=== PATIENT | male | born 1960 | race Caucasian/White ===

== ENCOUNTER 2019-07-03 09:27 | Day surgery (SDC) | payer BC ==
[2019-06-27 13:24] LABS: URINE BILIRUBIN NEGATIVE (Negative); URINE BLOOD NEGATIVE (Negative); URINE CLARITY CLEAR; URINE COLOR YELLOW; URINE GLUCOSE-RANDOM* NEGATIVE (Negative); URINE KETONES NEGATIVE (Negative); URINE LEUKOCYTES-REFLEX NEGATIVE (Negative); URINE NITRITE-REFLEX NEGATIVE (Negative); URINE PROTEIN (DIPSTICK) NEGATIVE (Negative); URINE SPECIFIC GRAVITY 1.015 (1.005-1.035); URINE UROBILINOGEN 0.2 E.U./dl (0.2-1.0)
[2019-06-27 13:33] LABS: HEMATOCRIT 46.2 % (42.0-52.0); HEMOGLOBIN 15.9 gm/dL (14.0-18.0); MCH 31.3 pg (26.0-34.0); MCHC 34.4 g/dL (28.0-37.0); MCV 91.1 fL (80.0-100.0); RBC 5.07 mil/uL (4.50-6.00); RDW 12.1 % (10.5-14.5); WBC 5.7 thou/uL (4.0-11.0)
[2019-06-27 13:37] LABS: PROTIME 10.2 Seconds (9.3-11.4)
[2019-06-27 13:38] LABS: ALBUMIN 4.1 g/dL (3.4-5.0); CALCIUM 9.1 mg/dL (8.5-10.1); CREATININE 1.1 mg/dL (0.7-1.3); POTASSIUM 4.1 mmol/L (3.5-5.1)
[2019-06-28 00:06] LABS: GLYCOHEMOGLOBIN (HGB A1C) 6.4 % (4.8-5.6)
[~2019-07-03] VITALS: Ht 165.1 cm; Wt 98.9 kg
[~2019-07-03 09:27] MED LIST: ASA81BEC PO; IBUPROFEN200 MG PO; LISINOPRIL10 MG PO; METFORMIN HCL1000 MG PO
[2019-07-03 10:16] VITALS: BP 146/91
--- NOTE | 2019-07-03 19:54 | NUR ---
PT CARE ASSUMED FROM PACU. A&Ox4. VITALS STABLE. POLAR PACK IN PLACE. SCD'S AND ROBERTO HOSES IN PLACE. ADMISSION COMPLEETE. AT BEDSIDE. PT HAS SLEEP APNEA AND HAS CPAP MACHINE FROM HOME AT BEDSIDE. BRIANNA DRESSING INTACT. IV PATENT WITH NO REDNESS OR EDEMA. SALINE LOCKED. PT HAS NOT BEEN TO THE BATHROOM YET BUT HAS THE URGE TO GO AND WANTS TO GET UP TO THE BATHROOM. ADMISSION COMPLEETE. FALL RISK PROTOCOLL IN PLACE. CALL LIGHT IN REACH. WILL CONTINUE TO MONITOR.
[2019-07-03 20:00] VITALS: BP 137/65
[2019-07-04 03:30] VITALS: BP 98/47
[2019-07-04 04:07] LABS: CALCIUM 8.6 mg/dL (8.5-10.1); CREATININE 1.5 mg/dL (0.7-1.3); POTASSIUM 4.4 mmol/L (3.5-5.1)
--- NOTE | 2019-07-04 04:32 | NUR ---
ASSESSED AT START OF SHIFT PT A&OX4 WITH C/O PAIN, MEDS GIVEN SEE EMAR. PT DIABETIC BUT NIDDM. BLOOD SUGAR 319 CALLED ARCHITECTURAL MODEL MAKER RECEIVING LEAD FOR INSULIN COVERAGE. RECHECKED BS AND BEDTIME INSULIN ADMINISTERED PER ORDERS. BRIANNA DRESSING, SCD'S AND POLAR PACK IN PLACE. PT UP WITH ASSISTX1 WITH WALKER AND GB TO THE BATHROOM. PT DID VERY WELL WITH AMBULATION. AT BEDSIDE FOR THE NIGHT. PT DRINKIN ADEQUATE PO FLUIDS. IV SL AND ABX GIVEN. FALL PREC IN PLACE AND CALL LIGHT IN REACH WILL CONT WITH POC TILL EOS
[2019-07-04 04:51] LABS: HEMATOCRIT 41.9 % (42.0-52.0); HEMOGLOBIN 14.3 gm/dL (14.0-18.0); MCH 31.6 pg (26.0-34.0); MCHC 34.1 g/dL (28.0-37.0); MCV 92.7 fL (80.0-100.0); RBC 4.52 mil/uL (4.50-6.00); RDW 12.3 % (10.5-14.5); WBC 15.4 thou/uL (4.0-11.0)
[2019-07-04 05:00] VITALS: BP 11/64
--- NOTE | 2019-07-04 07:15 | O ---
[address] [address] OPERATIVE REPORT Name: ARA MANRIQUEZ Room #: 439-P [facility]#: [id number] Admission: 07/03/19 Attend Phys: Marcial Montesinos MD Discharge: Date of : 62 Report #: [id number] THIS REPORT FOR: cc: Nesha Lay DNP, Leopoldine DNP McCabe, Michael P. MD ~ CC: Nesha Montesinos DATE OF SERVICE: 07/03/2019 SERVICE: Orthopedics. FACILITY: [facility]. SURGEON: Marcial Montesinos MD MANAGER OF LOSS PREVENTION OPERATIONS: Felicita Wolfe NP. INDICATION FOR MANAGER OF LOSS PREVENTION OPERATIONS: Extremity positioning, retraction, assistance with reconstruction. PREOPERATIVE DIAGNOSIS: Right knee osteoarthritis, severe. POSTOPERATIVE DIAGNOSIS: Right knee osteoarthritis, severe. PROCEDURE: 1. Right total knee arthroplasty. 2. Computer navigated robotic-assisted arthroplasty. COMPLICATIONS: None. DRAINS: None. SPECIMENS: None. ANESTHESIA: General with regional. FINDINGS: 1. Calloway and Nephew Oxinium Journey II size 6 femur with size 7 tibia, a 10 mm polyethylene insert and 35 mm patellar inset button. 2. Well balanced knee at the conclusion of the arthroplasty. HISTORY: The patient is a gentleman with history of severe right knee OA that has been progressing persistent and affecting his daily activities as well as his work. He had failed all conservative treatment including rest, activity [address] [address] OPERATIVE REPORT Name: ARA MANRIQUEZ Room #: 439-P [facility]#: [id number] Admission: 07/03/19 Attend Phys: Marcial Montesinos MD Discharge: Date of : 62 Report #: [id number] modifications, physical therapy, oral medicines, injections and elected to undergo definitive surgical treatment. Risks, benefits, alternatives, and indication of surgery discussed with him in detail. Risks include but not limited to pain, bleeding, infection, injury to nerves or blood vessels, need for further surgery, including stiffness as well as revision and complications related to anesthesia such as stroke, heart attack, pulmonary complications, thromboembolic disease and . Despite these risks, he wished to proceed. PROCEDURE IN DETAIL: After right lower extremity was correctly identified in preoperative holding as operative extremity, the patient underwent placement of single shot regional nerve block. He was then taken to the operating room where general anesthesia was induced without complications. He was padded appropriately. Prophylactic antibiotics were administered at appropriate time. Tourniquet was applied to right lower extremity. Right leg was then prepped and draped in standard sterile fashion. Time-out procedure was performed. Esmarch was used. Tourniquet inflated to 300 mmHg. The anterior approach was made to the knee and then a medial parapatellar arthrotomy was performed. Dissection was taken down. There was obvious osteoarthritis of the right knee and advanced chondral wear. The menisci were excised. The cruciates were excised. The osteophytes were excised and then the Calloway and Nephew guide half pins were placed in the femur and tibia in the checkpoints and then sizing and orientation was obtained with the Navio robotic-assisted program. This indicated approximately 13 degree flexion contracture with 7 degrees of varus and we planned for full extension with 1-2 degrees of postoperative varus in order to have him the best balanced knee possible. There were large osteophytes that were removed posteriorly. The medial osteophytes were removed as well on the tibia. The femur was mapped and then prepared with the 5-in-1 cutting block after the distal cut had been made with the Navio. The Navio was used to set the resection height on the tibia and then the tibial bone cut was made with care taken to protect the posterior soft tissues and structures. Trials were placed and then balancing was assessed, both manually and then with the computer navigation and it was well balanced and felt best with a 10 mm poly insert. The trials were removed as the posterior osteophytes were removed and then the posterior capsule was injected with the periarticular injection cocktail. The knee was then copiously irrigated and then the final implants were cemented into place after the patella had been prepared for 35 mm patellar inset button. The 10 mm trial was placed and the knee was held in extension while the cement cured. The excess cement was removed. Tourniquet was let down. Hemostasis was achieved. The knee was again irrigated and then it was assessed with the trial poly. I was happy with ___ throughout all range of motion and he did achieve full extension. He had a straight leg on visual inspection. The final poly was snapped into place after the knee was once more irrigated and then the arthrotomy was closed with 0 Vicryl suture in [id number] fashion over 1 gram of vancomycin powder. There was no significant bleeding occurring so no drain was required. Skin was [address] [address] OPERATIVE REPORT Name: ARA MANRIQUEZ Room #: 439-P [facility] M.R.#: [id number] Admission: 07/03/19 Attend Phys: Marcial Montesinos MD Discharge: Date of : 62 Report #: [id number] closed with 2-0 Vicryl followed by running subcuticular 3-0 Monocryl and Dermabond. A BRIANNA silver impregnated dressing was applied followed by compression stocking, PolarCare on the knee. The patient was awakened from anesthesia and taken to recovery room in stable condition. No complications. All counts were correct. <ELECTRONICALLY SIGNED> By: Marcial Montesinos MD 07/04/19 0715 1801 1908 Marcial Montesinos MD /nt
[2019-07-04 08:01] VITALS: BP 119/78
[2019-07-04 08:18] VITALS: BP 119/78
[2019-07-04 09:00] VITALS: BP 119/78
--- NOTE | 2019-07-04 10:10 | NUR ---
PT CARE ASSUMED AT 0700. A&Ox4. IN ROOM. PT POST OP DAY 1 WITH A R. TOTAL KNEE. PT HAS HOME CPAP IN THE ROOM. BRIANNA DRESSING INTACT. POLAR PACK AND SCD'D IN PLACE. [facility] COVERAGE NEEDED DURING THE STAY. PT HAS CLEARED PT TO GO HOME. PT. HAS OWN WALKER IN THE ROOM. IV IS PATENT WITH NO REDNESS OR EDEMA. SALINE LOCKED. PAIN MANAGED WELL WITH MEDICATION. PT IS UP TO THE BATHROOM WITH GAITBELT AND A WALKER. FALL PROTOCOLL IN PLACE. CALL LIGHT IN REACH. WILL CONTINUE TO MONITOR. EDUCATION GIVEN ON POLARPACK AND BRIANNA DRESSING.
--- NOTE | 2019-07-04 13:50 | NUR ---
PT ADMITTED RELATED TO RT TOTAL KNEE REPLACEMENT. CM REVIEWED CHART AND SPOKE WITH CARE TEAM. CM MET WITH PT AT BEDSIDE THIS DAY. PT IS A&O X4. CM ROLE INTRODUCED. PT INDICATED HE LIVES IN A HOUSE WITH HIS SPOUSE WITH NO STEPS. PT INDICATED HE HAS A FWW FOR HOME USE [place]. PT INDICATED HE IS TO DO OP PT AT [facility] [place]. PT TO DC HOME THIS DAY. NO OTHER CM INTERVENTION INDICATED. CASE CLOSED.
== END 2019-07-04 11:12 | disposition home or self-care (01) ==
LOC: OR 09:27 → TBA 09:29 → OR 11:52 → 4S 16:45 → ENTRNSPT 07-04 10:35 → OR 07-04 11:12
PROVIDERS: Orthopaedic Surgery Sports Medicine
DX: M17.11 Unilateral primary osteoarthritis, right knee (principal); M25.561 Pain in right knee; I10 Essential (primary) hypertension; F32.9 Major depressive disorder, single episode, unspecified; G47.30 Sleep apnea, unspecified; E11.9 Type 2 diabetes mellitus without complications; Z98.890 Other specified postprocedural states; Z79.899 Other long term (current) drug therapy
CPT/HCPCS: 10102; 50010; 50101; 50415; 50954; 51130; 51225; 51320; 52001; 52282; 53078; 54118; 55372; 56527; 56528; 57095; 57103; 57110; 57127; 57180; 62110; 62900; 64043; 65060; 70005

== ENCOUNTER → 2020-04-02 | Outpatient (CLI) | payer BC ==
[~2020-04-02] MED LIST changes: +ALPRAZOLAM 0.0.25 M1 PO; +MULTIVITAMIN1 EACH PO; +PRAZOSIN HCL2 MG PO; +SERTRALINE HCL100 MG PO; +TURMERIC500 M2 PO; +VITAMIN C500 M2 PO; +ZINC SULFATE220 MG PO
== END ==
LOC: LAB 07:18
PROVIDERS: ATTEND Orthopaedic Surgery Sports Medicine
DX: Z01.812 Encounter for preprocedural laboratory examination (principal); Z20.828 Contact with and (suspected) exposure to other viral communicable diseases

== ENCOUNTER 2020-04-08 09:56 | Inpatient (IN) | payer BC ==
[2020-04-02 13:14] LABS: URINE BILIRUBIN NEGATIVE (Negative); URINE BLOOD NEGATIVE (Negative); URINE CLARITY CLEAR; URINE COLOR YELLOW; URINE GLUCOSE-RANDOM* NEGATIVE (Negative); URINE KETONES NEGATIVE (Negative); URINE LEUKOCYTES-REFLEX NEGATIVE (Negative); URINE NITRITE-REFLEX NEGATIVE (Negative); URINE PROTEIN (DIPSTICK) NEGATIVE (Negative); URINE SPECIFIC GRAVITY 1.025 (1.005-1.035); URINE UROBILINOGEN 0.2 E.U./dl (0.2-1.0)
[2020-04-02 13:16] LABS: HEMATOCRIT 45.3 % (42.0-52.0); HEMOGLOBIN 15.6 gm/dL (14.0-18.0); MCH 32.2 pg (26.0-34.0); MCHC 34.4 g/dL (28.0-37.0); MCV 93.5 fL (80.0-100.0); RBC 4.84 mil/uL (4.50-6.00); RDW 12.6 % (10.5-14.5); WBC 7.1 thou/uL (4.0-11.0)
[2020-04-02 13:28] LABS: ALBUMIN 4.1 g/dL (3.4-5.0); CALCIUM 8.9 mg/dL (8.5-10.1); CREATININE 1.3 mg/dL (0.7-1.3); POTASSIUM 4.5 mmol/L (3.5-5.1)
--- NOTE | 2020-04-02 13:34 | EKG ---
[facility] [place] [address] ELECTROCARDIOGRAM REPORT Name: ARA MANRIQUZE Room #: PRE [facility]..#: [id number] Admission: Attend Phys: Marcial Montesinos MD Discharge: Date of : 62 Report #: [id number] THIS REPORT FOR: cc: Nesha Lay DNP, Leopoldine DNP Santiago, Patrick MD [facility] ~ THIS REPORT FOR: //name// [facility] Test Date: 2020-04-02 Test Time: 13:06:33 Pat Name: ARA MANRIQUEZ Department: Room: Gender: M Carpenter: JESUSITA : 1960 Requested By: Marcial Montesinos Order Number: [id number] MD: Umang Coulter Measurements Intervals [place] Rate: 96 P: 47 IN: 153 QRS: 25 QRSD: 85 T: 8 QT: 350 QTc: 443 Interpretive Statements Sinus rhythm Low voltage, extremity leads No previous ECG available for comparison Electronically Signed On 04-02-2020 13:34:31 MANAGER TELECOM by Umang Coulter [email or web address] <ELECTRONICALLY SIGNED> By: Umang Coulter MD, FACC 04/02/20 1334 1306 130 Umang Coulter MD, FACC /EPI
[2020-04-02 13:39] LABS: PROTIME 10.3 Seconds (9.3-11.4)
[2020-04-03 07:09] LABS: GLYCOHEMOGLOBIN (HGB A1C) 6.5 % (4.8-5.6)
[~2020-04-08] VITALS: Ht 165.1 cm; Wt 116.0 kg
[2020-04-17 13:52] VITALS: BP 155/87
[2020-04-17 18:01] VITALS: BP 162/107
[2020-04-17 18:59] VITALS: BP 162/107
--- NOTE | 2020-04-17 19:01 | NUR ---
PATIENT ARRIVED ON UNIT AT 17:50 SPOUSE AT BEDSIDE. V.S. 98.4 18 90 162/107 O2 SAT =95 % 2L/NC. HEIGHT = 5"5 WEIGHT = 255.7 PT ALERT XS 4. PT HAS POLAR PACK AND PICCO DRESSING INTACT. SCD'S AND THIGH HIGH ROBERTO HOSE IN PLACE. FLUIDS INFUSING ORDERED. CALLED PROGRAM PROJECT MANAGER FOR HTN ORDER RECIEVED FOR HYDRALIZINE 10 MG PO Q 4 HOURS WITH PARAMETERS.
[2020-04-17 19:45] VITALS: BP 153/78
[2020-04-17 22:40] VITALS: BP 160/94
[2020-04-18 03:27] VITALS: BP 127/72
--- NOTE | 2020-04-18 03:33 | NUR ---
PT IS ALERT AND ORIENTED, AFEBRILE. LEFT KNEE WITH BRIANNA DRSG INTACT WELL SCDS, TEDS AND POLAR BETTY. BP MUCH IMPROVED. HS BLOOD SUGAR OF 273, PT ASKED FOR SOME TURKEY SANDWICH BOX.USES URINAL,NO ISSUES. PT STILL REPORTS SOME NUMBNESS TO LLE,GOOD CAP REFILL NOTED. GOOD FLUID INTAKE. SATTING WELL ABOVE 93% ON ROOM AIR. USING CPAP AT NOC.APPEARS TO BE RESTING WELL. PAIN MANAGED BY PERCOCET. RATES PAIN AT A 6/10.PROGRESSING TOWARDS CARE GOALS.
[2020-04-18 06:00] LABS: HEMATOCRIT 41.2 % (42.0-52.0); HEMOGLOBIN 13.9 gm/dL (14.0-18.0); MCH 31.7 pg (26.0-34.0); MCHC 33.7 g/dL (28.0-37.0); MCV 94.1 fL (80.0-100.0); RBC 4.37 mil/uL (4.50-6.00); RDW 12.3 % (10.5-14.5); WBC 12.4 thou/uL (4.0-11.0)
[2020-04-18 06:20] LABS: CALCIUM 8.3 mg/dL (8.5-10.1); CREATININE 1.5 mg/dL (0.7-1.3); POTASSIUM 4.3 mmol/L (3.5-5.1)
[2020-04-18 07:15] VITALS: BP 120/77
[2020-04-18] MEDS ORDERED: ASA81BEC PO (08:56)
--- NOTE | 2020-04-18 09:52 | NUR ---
PT CARE ASSUMED AT 0700. A&Ox4. BRIANNA DRESSING DRY AND INTACT. POLARPACK/TEDS/SCD'S IN PLACE. PAIN CONTROLLED WELL WITH PAIN MEDICATION ON BOARD. CPAP AT NIGHT. ACHS WITH LOW SLIDING SCALE COVERAGE. NORMALY DIET CONTROLLED AT HOME. IV PATENT WITH NO REDNESS OR EDEMA, SALINE LOCKED. PT/RT ON BOARD. FALL PROTOCOL IN PLACE. CALL LIGHT IN REACH. WILL CONTINUE TO MONITOR.
--- NOTE | 2020-04-18 11:41 | NUR ---
ASSESSMENT: CM REVIEWED CHART AND SPOKE WITH PT. PT IS ALERT AND ORIENTED X4. PT IS S/P LEFT KNEE REPLACEMENT. PT REPORTS LIVING IN A HOUSE WITH HIS . PT REPORTS NO STEPS TO ENTER OR ONCE INSIDE. PT REPORTS HAVING A WALKER FOR AMBULATION. PT REPORTS HE IS GOING TO GO TO OUTPATIENT THERAPY AT [facility]. CM DISCUSSED ROLE. PT DOES NOT ANTICIPATE HAVING ANY NEEDS FROM CM. PT WILL DISCHARE HOME.
[2020-04-18 12:22] VITALS: BP 120/77
--- NOTE | 2020-04-19 10:43 | O ---
[address] [address] OPERATIVE REPORT Name: ARA MANRIQUEZ Room #: 439-P [facility] M.R.#: [id number] Admission: 04/17/20 Attend Phys: Marcial Montesinos MD Discharge: 04/18/20 Date of : 62 Report #: [id number] THIS REPORT FOR: cc: Nesha Lay DNP, Leopoldine DNP McCabe, Michael P. MD ~ DATE OF SERVICE: 04/17/2020 SERVICE: Orthopedics. FACILITY: [place]. SURGEON: Dr. Marcial Montesinos CLEANING PORTER: Feliicta Wolfe NP INDICATION FOR CLEANING PORTER: Exposure and closure, retraction trial and final implant placement. COMPLICATIONS: None. DRAINS: None. SPECIMENS: None. ANESTHESIA: General with regional. ESTIMATED BLOOD LOSS: 50 mL. FINDINGS: 1. Calloway and Nephew Journey II Oxinium size 7 femoral component, size 6 tibial component, 35 mm patellar button and 11 mm poly. 2. Well-balanced knee at the conclusion of the procedure. PREOPERATIVE DIAGNOSIS: Severe left knee osteoarthritis. POSTOPERATIVE DIAGNOSIS: Severe left knee osteoarthritis. PROCEDURES: 1. Left total knee arthroplasty. 2. Robotic-assisted arthroplasty. HISTORY: The patient is a 59-year-old gentleman with history of bilateral knee osteoarthritis. He had a right total knee replacement earlier in 2019 and had a good clinical outcome with improvement of his pain and function, but he continued to have lifestyle limiting knee pain and problems related to his [address] [place] [address] OPERATIVE REPORT Name: ARA MANRIQUEZ Room #: 439-P [facility] ..#: [id number] Admission: 04/17/20 Attend Phys: Marcial Montesinos MD Discharge: 04/18/20 Date of : 62 Report #: [id number] osteoarthritis. His x-ray showed [id number] changes with sclerosis and osteophytes. He was indicated for surgical treatment after failing extensive conservative measures including rest, activity modifications, physical therapy, oral medicines and injections and bracing. Risks, benefits, alternatives, and indication of surgery discussed with him in detail. Risks include but are not limited to pain, bleeding, infection, injury to nerves or blood vessels, persistent pain despite surgical intervention, failure of any repairs, failure of the arthroplasty, need for further surgery as well as complications related to anesthesia. Despite the risks, he wished to proceed. PROCEDURE IN DETAIL: After left lower extremity was correctly identified in the preoperative holding area as the operative extremity, the patient underwent regional nerve block. He was then taken to the operating room where general anesthesia was induced without complications. He was padded appropriately. Prophylactic antibiotics were administered at appropriate time. Left leg was then prepped and draped in standard sterile fashion after tourniquet was applied to the left leg. Time-out procedure was performed prior to tourniquet. The antibiotics were confirmed to be appropriately administered. Esmarch was utilized. Tourniquet inflated to 300 mmHg. Standard anterior approach was made with medial parapatellar arthrotomy. Dissection was performed exposing the knee. The osteophytes were removed. The cruciates were removed. The anterior horns of the medial and lateral menisci were resected as was the retropatellar fat pad. The patella was everted and then we proceeded to place the tracker pins and then the femoral and tibial half pins for the Calloway and NephLang-8 Navio system. The templating software was then utilized to assess the kinematics and the anatomy and then the bur was used in a standard fashion and then we transitioned to the 4-in-1 cutting block for the femur, sizing it to a 7 femur with a goal of correcting his flexion varus deformity. We proceeded with preparation of the tibia, removed all the posterior osteophytes and then used a lamina maxillofacial prosthodontist and injected with the periarticular injection cocktail into the posterior capsule. We placed the sizing blocks. I was happy with the balancing initially with one knee, posterior osteophytes and the residual PCL was resected. It really fit a little bit better in terms of the tensioning that seemed to be best for him and that was based on examination with the trials as well as assessment with the Navio with the trials in place, giving live balancing feedback after the final preparation of the bone was completed, including tibial punching and trialing and the patella was prepared. The knee was thoroughly irrigated and then the final components were cemented into position. The 11 trial was utilized and the knee was held in extension while the cement cured. Excess cement was removed. Hemostasis was achieved after the tourniquet was let down and the balancing was assessed with the 11 poly. I was happy with this and we selected this as a final implant. The trial was removed. The knee was once again thoroughly irrigated. All debris was removed and then a final size 11 poly insert was snapped into position. The knee was placed into extension, was found to be well [facility] [address] [place] [address] OPERATIVE REPORT Name: ARA MANRIQUEZ Room #: 439-P [facility].#: [id number] Admission: 04/17/20 Attend Phys: Marcial Montesinos MD Discharge: 04/18/20 Date of : 62 Report #: [id number] balanced and then the arthrotomy was closed over a gram of vancomycin powder with 0 Vicryl sutures in [id number] fashion. The skin layer was closed with 2-0 Vicryl and 3-0 Monocryl and Dermabond. Sterile dressing was applied followed by a thigh-high compression stocking and a knee sleeve for the PolarCare device. The patient was then awakened from anesthesia and taken to recovery room in stable condition. There were no complications and all counts were recorded. <ELECTRONICALLY SIGNED> By: Marcial Montesinos MD 04/19/20 1043 1723 11 Marcial Montesinos MD /nt
== END 2020-04-18 13:07 | disposition home or self-care (01) | DRG 470 ==
LOC: EDSTATUS 09:56 → PRE 09:59 → OR 12:32 → PRE 04-17 10:39 → TBA 04-17 13:01 → PRE 04-17 15:33 → 4S 04-17 17:47
PROVIDERS: ADMIT Orthopaedic Surgery Sports Medicine; ATTEND Orthopaedic Surgery Sports Medicine
PROC: 8E0Y0CZ Robotic Assisted Procedure of Lower Extremity, Open Approach (ICD-10-PCS; principal; 2020-04-17)
PROC: 0SRD0J9 Replacement of Left Knee Joint with Synthetic Substitute, Cemented, Open Approach (ICD-10-PCS; principal; 2020-04-17)
DX: M17.12 Unilateral primary osteoarthritis, left knee (principal); E11.9 Type 2 diabetes mellitus without complications; I10 Essential (primary) hypertension; G47.33 Obstructive sleep apnea (adult) (pediatric); F32.9 Major depressive disorder, single episode, unspecified; F41.9 Anxiety disorder, unspecified; Z79.899 Other long term (current) drug therapy
CPT/HCPCS: 10102; 50010; 50101; 50415; 50954; 51130; 51225; 52001; 52282; 53000; 53078; 53365; 54118; 56527; 56528; 57095; 57103; 57110; 57127; 57180; 62110; 62900; 64042; 70005

== ENCOUNTER → 2020-04-14 | Outpatient (CLI) | payer BC | LOC: LAB 10:39 | PROVIDERS: ATTEND Student in an Organized Health Care Education/Training Program | DX: Z01.812 Encounter for preprocedural laboratory examination (principal); Z20.828 Contact with and (suspected) exposure to other viral communicable diseases ==